=== PATIENT | female | born 1945 | race Caucasian/White ===

== ENCOUNTER → 2023-11-03 09:45 | Outpatient (REF) | payer MEDICARE, OTHER, SELFPAY | LOC: RAD 09:45 | PROVIDERS: ATTENDING PHYSICIAN Nurse Practitioner Family | DX: M79.641 Pain in right hand (principal) | CPT/HCPCS: 73130 ==

== ENCOUNTER → 2023-11-18 13:10 | Outpatient (REF) | payer MEDICARE, OTHER, SELFPAY | LOC: WDC 13:10 | PROVIDERS: ATTENDING PHYSICIAN Nurse Practitioner Family | DX: Z12.31 Encounter for screening mammogram for malignant neoplasm of breast (principal) | CPT/HCPCS: 77063; 77067 ==

== ENCOUNTER → 2024-03-01 14:46 | Outpatient (REF) | payer MEDICARE, OTHER, SELFPAY | LOC: RCS 14:46 | PROVIDERS: ATTENDING PHYSICIAN Nuclear Medicine Nuclear Cardiology; FAMILY PHYSICIAN Nurse Practitioner Family | DX: R06.09 Other forms of dyspnea (principal) | CPT/HCPCS: 93306 ==

== ENCOUNTER 2024-03-01 15:43 | Emergency (ER) | payer MEDICARE, OTHER, SELFPAY ==
[2024-03-01 15:45] VITALS: BP 137/70
--- NOTE | 2024-03-01 16:24 | ED.GENMED ---
History of Present Illness
<CLAUDE Cote Last Filed: 03/01/24 21:38>
General
Chief Complaint: Musculo-Skeletal Complaint
Source: patient
Exam Limitations: none
Time Seen by Provider: 03/01/24 16:22
Nursing documentation reviewed up to this point in time: agreed with
History of Present Illness
History of Present Illness:
This is a 78 y/o female with a pmh of copd, hypothyroidism, parotid gland cancer presenting to the emergency department today with right foot pain. Patient states that she was bending down to scoop cat litter when she rolled on her foot and fell
straight down. This happened yesterday at 8 AM. Patient was able to get up okay on her own. She did not hit her head, denies any neck pain, dizziness, headache, denies any other injuries. Patient does not take any blood thinners. Patient is able
to walk okay but with significant pain. She said that today, her foot started to become swollen. Patient states that she has chronic neuropathy in her feet and patient states that she often has difficulty walking at baseline. Patient lives at
home with her .
Past History
<Amada Nava PA-C - Last Filed: 03/01/24 21:38>
Past History
ED Past Medical History: Hypothyroidism, Other (neuropathy) and Other (parotid cancer)
ED Past Surgical History: Cholecystectomy, Gynecological and Orthopedic
Social History
Tobacco: Non-smoker
Drug: None
Personal:
Living: with family
Employment: Employed
Family History
Family History: Other
Review of Systems
<CLAUDE Cote Last Filed: 03/01/24 21:38>
Review of Systems
All Other Systems: ROS reviewed and negative except as documented in HPI and ROS
Phy Exam
<CLAUDE Cote Last Filed: 03/01/24 21:38>
Physical Exam
Physical Exam:
General: Patient is well appearing and in no acute distress; non-toxic
Skin: Warm and dry, no rashes or lesions
Head: Normocephalic, atraumatic
Eyes: Sclera non-icteric. EOMs intact. PERRLA.
Cardiac: Regular rate and rhythm, no murmurs.
Peripheral Vascular: No lower extremity swelling or edema.
Pulm: Normal respiratory effort
Musculoskeletal: Significant swelling over the dorsum of the foot with no erythema. No pain with range of motion of the ankle. No bony tenderness of proximal tibia and fibula.
Neuro: CN II-XII intact, no focal neurologic deficits.
Psychiatric: Appropriate mood and affect.
Course
<Amada Nava PA-C - Last Filed: 03/01/24 21:38>
Orders/Labs/Results
Orders:
Orders
03/01/24 15:48
CR Foot - Right Min 3 Views Urgent
Comment:
Reason For Exam: fall 02/29/24, pain
03/01/24 17:31
Oxycodone/Acetaminophen [Percocet 5/325] 1 tablet PO NOW STA
Vital Signs
Initial and Last Documented VS:
Initial Vital Signs
Temp Pulse Resp BP Pulse Ox
98.8 F 62 16 137/70 98
03/01/24 15:45 03/01/24 15:45 03/01/24 15:45 03/01/24 15:45 03/01/24 15:45
Last Documented Vital Signs
Temp Pulse Resp BP Pulse Ox
98.8 F 62 16 137/70 98
03/01/24 15:45 03/01/24 15:45 03/01/24 15:45 03/01/24 15:45 03/01/24 15:45
<Nehemias Almonte DO - Last Filed: 03/01/24 17:28>
Orders/Labs/Results
Orders:
Orders
03/01/24 15:48
CR Foot - Right Min 3 Views Urgent
Comment:
Reason For Exam: fall 02/29/24, pain
03/01/24 17:31
Oxycodone/Acetaminophen [Percocet 5/325] 1 tablet PO NOW STA
Vital Signs
Initial and Last Documented VS:
Initial Vital Signs
Temp Pulse Resp BP Pulse Ox
98.8 F 62 16 137/70 98
03/01/24 15:45 03/01/24 15:45 03/01/24 15:45 03/01/24 15:45 03/01/24 15:45
Last Documented Vital Signs
Temp Pulse Resp BP Pulse Ox
98.8 F 62 16 137/70 98
03/01/24 15:45 03/01/24 15:45 03/01/24 15:45 03/01/24 15:45 03/01/24 15:45
Procedures
<Amada Nava PA-C - Last Filed: 03/01/24 21:38>
Splinting/Sling Placement
Right leg:
Procedure completed by: Amada Nava PA-C
Pre-splint extermity exam: neurovascular intact
Type of splint: posterior short leg
Splint material: fiberglass
Splint checked by provider?: Yes
Normal distal neurovascular exam?: Yes
<Amada Nava PA-C - Last Filed: 03/01/24 21:38>
MDM/Problems Addressed
Differential Diagnosis Includes:
ddx include metatarsal fracture, phalangeal fracture, ankle sprain/strain
MDM/Problems Addressed:
Metatarsal fracture:
This is a 78 y/o female with a pmh of copd, hypothyroidism, parotid gland cancer presenting to the emergency department today with right foot pain. Patient states that she was bending down to scoop cat litter when she rolled on her foot and fell
straight down. She was found to have a proximal metatarsal fracture consistent with a Velez Fracture. Patient endured no other injuries. Patient was placed in a posterior short leg splint. Patient has significant neuropathy at baseline in which she
struggles to ambulate and would be unable to use crutches, script written for wheel chair. Patient has support at home with her . Patient will call Dr. Judd's office tomorrow.
Chronic conditions affecting care:
neuropathy, COPD, hypothyroidism, parotid gland cancer
Acute Exacerbation and/or Progression of Chronic Illness:
neuropathy
<Amada Nava PA-C - Last Filed: 03/01/24 21:38>
*Pulse Oximetry
Patient hypoxic: no
*Critical Care Note
Total Time (30-74mins, 75-104mins- exclusive of procedures): Not Applicable
Data Reviewed
Review of Other/Old Records Reveals: Records (reviewed er physician documentation from 05/22/22)
Prescriptions/Medications Considered But Not Given:
n/a
Further Testing Considered But Not Given:
n/a
<Amada Nava PA-C - Last Filed: 03/01/24 21:38>
Patient Management
Escalation/DeEscalation of care consider admission/obs:
Admission not indicated. Case reviewed with my attending Dr. Almonte.
ED Attending Note
<Amada Nava PA-C - Last Filed: 03/01/24 21:38>
-
Portions of this chart may have been created with voice recognition software.� Occasional wrong word or��sound alike� substitutions may have occurred due to the inherent limitations of voice recognition software.
<Nehemias Almonte DO - Last Filed: 03/01/24 17:28>
ED Attending Note
Patient seen and examined by attending physician: Yes
I performed the substantive portion of visit, reviewed & personally made and approve the management plan that is documented in note by myself or BRIA.: Yes
Discharge Plan
Departure
Patient Disposition: Home (Routine Discharge)
Date of Disposition: 03/01/24
Time of Disposition: 17:38
Patient with high blood pressure during this ER visit?: Yes
Discharge Problem:
Velez fracture
Instructions: Foot Avulsion Fracture (DC), Splint Care, BLOOD PRESSURE
Prescriptions:
New
oxycodone-acetaminophen [Percocet] 5-325 mg tablet
1 tab PO Q6HPRN PRN (Reason: pain) Qty: 6 0RF
No Action
L.acidoph, paracasei,B. lactis 1 EACH capsule
1 ea PO DAILY
levothyroxine 100 MCG tablet
100 mcg PO DAILY AT 0700
gabapentin 300 MG capsule
600 mg PO QPM
mupirocin 1 APPLIC ointment
1 applic intranasal BID Qty: 1 0RF
sennosides [senna] 1 TABLET tablet
1 tab PO PRN PRN (Reason: constipation)
sennosides [senna] 1 TABLET tablet
2 tab PO BID 0RF
hydromorphone 2 MG tablet
2 mg PO Q4HPRN PRN (Reason: moderate pain) Qty: 15 0RF
Rx Instructions:
dx CHELSI
ongoing therapy
magnesium hydroxide 30 ML suspension
30 ml PO DAILYPRN PRN (Reason: constipation) 0RF
diazepam 2 MG tablet
1 mg PO BID@2200,0700 Qty: 14 0RF
docusate sodium 100 MG capsule
100 mg PO BID 0RF
hydromorphone 4 MG tablet
4 mg PO Q4HPRN PRN (Reason: severe pain) Qty: 15 0RF
Rx Instructions:
DX CHELSI
ongoing therapy
enoxaparin 40 MG/0.4 ML syringe
40 mg SC QPM 0RF
Rx Instructions:
LAST DOSE 05/15-THEN ELIQUIS
pantoprazole 40 MG tablet,delayed release (DR/EC)
40 mg PO HS Qty: 1 0RF
prednisone 10 MG tablet
40 mg PO TAPER Qty: 20 0RF
apixaban [Eliquis] 2.5 MG tablet
2.5 mg PO BID Qty: 60 0RF
Rx Instructions:
BEGIN 9/4 AM
ondansetron 4 MG tablet,disintegrating
4 mg PO TIDPRN PRN (Reason: nausea) Qty: 15 0RF
dicyclomine 10 MG capsule
10 mg PO QIDPRN PRN (Reason: abdominal pain) Qty: 10 0RF
Referrals:
Antonette Jennings CRNP [Family Provider] -
Diego Judd MD [Active] - Call in 1-3 days for appt
Activity Restrictions/Additional Instructions:
Tomorrow morning, please call the attached number to see the orthopedist to schedule appointment for follow-up.
Please remain nonweightbearing. Please use a wheelchair.
We have sent Percocet to your pharmacy. This medication contains Tylenol. The next time you can take it is 10:30 pm. Tomorrow, you can take one tablet every 6 hours as needed.
Please return emergency department should you experience excessive pallor in your extremity, increasing pain, decrease sensation, or other concerning signs or symptoms.
Interventions
Interventions:
*Risk Screen - Suicide Last Done: 03/01/24 16:31
*General Assessment Last Done: 03/01/24 15:45
*Neglect/Abuse Screening Last Done: 03/01/24 16:31
ED- Fall Risk Assessment Last Done: 03/01/24 18:01
*ED COVID-19 Vaccine History Last Done: 03/01/24 15:45
*Nursing Disposition Last Done: 03/01/24 18:01
ED-Musculoskeletal Assessment Last Done: 03/01/24 16:31
Discharge Date and Time
Discharge Date/Time: 03/01/24 18:03
Print Language: CHINESE
[2024-03-01] MEDS: PERCOCET 5/325 1 TABLET PO (17:44)
[2024-03-01 17:49] VITALS: BMI 25.0
== END 2024-03-01 18:03 | disposition home or self-care (01) ==
LOC: EMR 15:43
PROVIDERS: EMERGENCY PHYSICIAN Emergency Medicine; FAMILY PHYSICIAN Nurse Practitioner Family
DX: S92.354A Nondisplaced fracture of fifth metatarsal bone, right foot, initial encounter for closed fracture (principal); W18.39XA Other fall on same level, initial encounter; Y93.89 Activity, other specified; R03.0 Elevated blood-pressure reading, without diagnosis of hypertension; J44.9 Chronic obstructive pulmonary disease, unspecified; E03.9 Hypothyroidism, unspecified; C07 Malignant neoplasm of parotid gland; G62.9 Polyneuropathy, unspecified; R26.2 Difficulty in walking, not elsewhere classified; Z90.49 Acquired absence of other specified parts of digestive tract
CPT/HCPCS: 99283; 29515; 73630

== ENCOUNTER → 2024-04-05 07:28 | Outpatient (REF) | payer MEDICARE, OTHER, SELFPAY ==
[2024-04-05] MEDS: FLUSH (NSS) 1 FLUSH IV (09:15)
[2024-04-05] MEDS: LEXISCAN 0.4 MG IV (09:15)
== END ==
LOC: RCS 07:28
PROVIDERS: ATTENDING PHYSICIAN Nuclear Medicine Nuclear Cardiology; FAMILY PHYSICIAN Nurse Practitioner Family
DX: R06.09 Other forms of dyspnea (principal)
CPT/HCPCS: 93017; J2785

== ENCOUNTER → 2024-04-12 08:14 | Outpatient (REF) | payer MEDICARE, OTHER, SELFPAY | LOC: RAD 08:14 | PROVIDERS: ATTENDING PHYSICIAN Physician Assistant; FAMILY PHYSICIAN Nurse Practitioner Family | DX: T07.XXXA Unspecified multiple injuries, initial encounter (principal); K59.09 Other constipation; Z78.0 Asymptomatic menopausal state | CPT/HCPCS: 74022; 77080 ==

== ENCOUNTER 2024-08-25 08:58 | Emergency (ER) | payer MEDICARE, OTHER, SELFPAY ==
[2024-08-25 09:06] VITALS: BP 159/74; BMI 22.9
--- NOTE | 2024-08-25 09:20 | ED.GENMED ---
History of Present Illness
General
Chief Complaint: Weakness
Time Seen by Provider: 08/25/24 09:03
History of Present Illness
History of Present Illness:
Patient is a 79-year-old woman with history of hypothyroidism, neuropathy, prior PE not currently on anticoagulation presenting to the emergency department with a headache. Patient states for the past week she has had a headache to the front of her
head. She describes as a tight band. It gradually worsened throughout the week. She states that this morning she woke up around 7 AM with a worsening headache. It was not a thunderclap headache. She does state that she has not been having any
nausea photophobia or phonophobia. She states that she tried to get up out of bed this morning but was having significant weakness secondary to the headache so her called 911. No fevers or chills. No chest pain. No nausea or vomiting.
No abdominal pain. No numbness tingling. No urinary symptoms. No back pain. No falls.
Past History
Past History
ED Past Medical History: Hypothyroidism, Other (neuropathy) and Other (parotid cancer)
ED Past Surgical History: Cholecystectomy, Gynecological and Orthopedic
Social History
Tobacco: Non-smoker
Drug: None
Personal:
Living: with family
Employment: Employed
Family History
Family History: Other
Phy Exam
Physical Exam
Physical Exam:
GENERAL: in no acute distress
HEENT: normocephalic, extraocular movements intact, moist oral mucosa
NECK: normal inspection
RESPIRATORY: no respiratory distress, clear to auscultation bilaterally
CARDIOVASCULAR: regular rate and rhythm
ABDOMEN/: soft, non-distended, non-tender to palpation, no rebound or guarding
EXTREMITIES: non-tender, no edema/swelling
NEUROLOGIC: NEUROLOGIC: alert and oriented x 3, cranial nerves II-XII intact, right upper extremity strength 3/5, left upper extremity strength 3/5, right lower extremity strength 3/5, left lower extremity strength 3/5, normal sensation to light
touch, normal [id number] and [id number], gait not tested formally
SKIN: warm
Course
Orders/Labs/Results
Orders:
Orders
08/25/24 Breakfast
NPO
Reason for opting out of [employer] order writing: Provider Decision
Allow oral meds: No
Allow clear liquids: No
08/25/24 09:03
EKG [Electrocardiogram (*1)] Urgent
Reason for Study: Chest Pain
EKG- Treatment ONCE
08/25/24 09:19
Metoclopramide [Reglan] 10 mg IV NOW STA
08/25/24 09:20
CT Head W/o Iv Contrast Urgent
Comment:
Reason For Exam: headache
08/25/24 09:21
Complete Blood Count/With Diff Urgent
Comprehensive Metabolic Panel Urgent
TSH Reflex To Free T4 Urgent
08/25/24 09:42
0.9% Sodium Chloride 1000 ml [Nss] 1,000 ml IV BOLUS
08/25/24 10:57
Ketorolac [Toradol] 15 mg IV NOW STA
08/25/24 10:58
Urinalysis Reflex To Culture Urgent
Date Specimen was Collected: 08/25/24
Time Specimen was Collected: 09:03
Urine Microscopic Reflex Cult Urgent
Urine Culture Urgent
MILLER Source: U
Specimen Description:
Date Specimen was Collected: 08/25/24
Time Specimen was Collected: 09:03
08/25/24 12:43
Cephalexin Monohydrate [Keflex] 500 mg PO NOW STA
Abnormal Lab Results
08/25/24 08/25/24
09:21 10:58
Creatinine 0.5 L mg/dL
(0.6-1.0)
Leukocyte Esterase Rfl 1+ A
(Negative)
Urine WBC (Reflex) 30-40 A /HPF
(0-5)
Urine Bacteria (Reflex) Moderate A
(Negative)
08/25/24 09:21
08/25/24 09:21
Vital Signs
Initial and Last Documented VS:
Initial Vital Signs
Pulse Ox
97
08/25/24 09:03
Last Documented Vital Signs
Temp Pulse Resp BP Pulse Ox
98.3 F 67 17 137/62 95
08/25/24 09:06 08/25/24 11:00 08/25/24 11:00 08/25/24 10:00 08/25/24 10:00
MDM/Problems Addressed
Differential Diagnosis Includes:
Patient is a 79-year-old woman with history of hypothyroidism, neuropathy presenting to the emergency department with headache and generalized weakness. Vitals here notable for being afebrile. Exam does show generalized weakness with strength only
able to go against gravity. No sensory deficits. Given that the headache has been ongoing for 1 week and slowly worsening differential consists of migraine versus tension. No evidence of meningismus on exam to suggest meningitis. Considered
subarachnoid however it was not thunderclap in nature. Given that it did suddenly worsen at 7 AM patient is currently in the window for CT scan. Patient does have a remote history of cancer so could be malignancy or metastases. Could be metabolic
derangement or infection such as UTI. Given that the is asymptomatic less likely to be carbon monoxide poisoning. Will check blood work EKG. Will obtain CT scan. Will give Reglan. Will wait to administer Toradol until after CT scan.
*Critical Care Note
Total Time (30-74mins, 75-104mins- exclusive of procedures): Not Applicable
Update Note
Update Note:
is at bedside who states that this week she was acting completely normal. She did not complain of a headache to him. This morning she got up around 7 AM in her usual state of health. She fed the pets and was going about her morning when
she called her stating that she felt weak and unstable. Patient's states that there was no slurring of her speech and she did not have any word finding difficulty. No weakness limited to one limb. He states that it was
generalized during this entire event.
CT scan of the head per my interpretation with no acute abnormality. Toradol given. Blood work is unremarkable. Urine does have some leukocyte esterase as well as bacteria. On reevaluation patient states that she feels much better. She was able
to ambulate and does not feel weak. She states that her headache is resolved. She does note that she has noticed a smell to her urine. Given the weakness and this urine we will treat with antibiotics. I did offer patient admission for further
evaluation given the sudden onset weakness and headache however patient would prefer to go home. She will call her primary care doctor on Tuesday for further evaluation. I do think this is appropriate as my suspicion for a TIA is low given that she
had generalized weakness and no focal deficits during this episode. Strict return precautions given to patient and patient's who is at bedside. All questions answered. Will discharge at this time.
ED Attending Note
-
Portions of this chart may have been created with voice recognition software.� Occasional wrong word or��sound alike� substitutions may have occurred due to the inherent limitations of voice recognition software.
Discharge Plan
Departure
Patient Disposition: Home (Routine Discharge)
Date of Disposition: 08/25/24
Time of Disposition: 12:44
Patient with high blood pressure during this ER visit?: No
Discharge Problem:
Headache, Acute UTI
Instructions: Generalized Weakness (DC)
Prescriptions:
New
cephalexin 500 mg capsule
500 mg PO Q12H 5 Days Qty: 10 0RF
No Action
L.acidoph,paracasei,B.animalis 1 EACH capsule
1 ea PO DAILY
levothyroxine 100 MCG tablet
100 mcg PO DAILY AT 0700
gabapentin 300 MG capsule
600 mg PO QPM
mupirocin 1 APPLIC ointment
1 applic intranasal BID Qty: 1 0RF
sennosides [senna] 1 TABLET tablet
1 tab PO PRN PRN (Reason: constipation)
sennosides [senna] 1 TABLET tablet
2 tab PO BID 0RF
hydromorphone 2 MG tablet
2 mg PO Q4HPRN PRN (Reason: moderate pain) Qty: 15 0RF
Rx Instructions:
dx CHELSI
ongoing therapy
magnesium hydroxide 30 ML suspension
30 ml PO DAILYPRN PRN (Reason: constipation) 0RF
diazepam 2 MG tablet
1 mg PO BID@2200,0700 Qty: 14 0RF
docusate sodium 100 MG capsule
100 mg PO BID 0RF
hydromorphone 4 MG tablet
4 mg PO Q4HPRN PRN (Reason: severe pain) Qty: 15 0RF
Rx Instructions:
DX CHELSI
ongoing therapy
enoxaparin 40 MG/0.4 ML syringe
40 mg SC QPM 0RF
Rx Instructions:
LAST DOSE /-THEN ELIQUIS
pantoprazole 40 MG tablet,delayed release (DR/EC)
40 mg PO HS Qty: 1 0RF
prednisone 10 MG tablet
40 mg PO TAPER Qty: 20 0RF
apixaban [Eliquis] 2.5 MG tablet
2.5 mg PO BID Qty: 60 0RF
Rx Instructions:
BEGIN 9/4 AM
ondansetron 4 MG tablet,disintegrating
4 mg PO TIDPRN PRN (Reason: nausea) Qty: 15 0RF
dicyclomine 10 MG capsule
10 mg PO QIDPRN PRN (Reason: abdominal pain) Qty: 10 0RF
oxycodone-acetaminophen [Percocet] 5-325 mg tablet
1 tab PO Q6HPRN PRN (Reason: pain) Qty: 6 0RF
Referrals:
Antonette Jennings CRNP [Family Provider] -
Interventions
Interventions:
*Risk Screen - Suicide Last Done: 08/25/24 09:03
*General Assessment Last Done: 08/25/24 09:03
*Neglect/Abuse Screening Last Done: 08/25/24 09:03
ED- Fall Risk Assessment Last Done: 08/25/24 09:03
*ED COVID-19 Vaccine History Last Done: 08/25/24 09:03
ED- Cardiac Assessment Last Done: 08/25/24 09:03
ED- Neurological Assessment Last Done: 08/25/24 09:03
ED- Pulmonary Assessment Last Done: 08/25/24 09:03
Discharge Date and Time
Print Language: URDU
[2024-08-25 09:47] LABS: % Basophils 0.8 % (0-2); % Eosinophils 1.7 % (0-6); % Immature Granulocytes 0.2 % (0-0.5); % Lymphocytes 33.3 % (20.5-51.1); % Monocytes 8.8 % (1.7-9.3); % Neutrophils 55.2 % (42.2-75.2); Absolute Eosinophils 0.1 10^3/uL (0-0.7); Absolute Lymphocytes 1.6 10^3/uL (1.2-3.4); Absolute Monocytes 0.4 10^3/uL (0.1-0.6); Absolute Neutrophils 2.6 10^3/uL (1.4-6.5); Hematocrit 43.3 % (37.0-47.0); Hemoglobin 14.5 g/dL (12.0-16.0); Mean Corp Hgb Conc. 33.5 g/dL (33.0-37.0); Mean Corpuscular Hgb 29.2 pg (27.0-31.0); Mean Corpuscular Volume 87.1 fL (81.0-99.0); Mean Platelet Volume 9.3 fL (7.4-10.4); Nucleated Red Blood Cells % 0 %; Platelet Count 228 10^3/uL (130-400); Red Blood Cell Count 4.97 10^6/uL (4.20-5.40); White Blood Cell Count 4.8 10^3/uL (4.8-10.8)
[2024-08-25] MEDS: REGLAN 10 MG IV (09:49)
[2024-08-25] MEDS: NSS 1000 IV (09:52)
[2024-08-25 10:00] VITALS: BP 137/62
[2024-08-25 10:01] LABS: ALT (SGPT) 20 U/L (0-35); AST (SGOT) 25 U/L (14-36); Albumin 4.1 g/dl (3.5-5.0); Alkaline Phosphatase 59 U/L (38-126); Blood Urea Nitrogen 12 mg/dl (7-17); Carbon Dioxide 28 mmol/L (22-30); Chloride 107 mmol/L (98-107); Estimated Creatinine Clearance 72 ml/min; Glucose 94 mg/dl (70-99); Sodium 142 mmol/L (135-145); Total Bilirubin 1.1 mg/dl (0.2-1.3); Total Protein 6.4 g/dl (6.3-8.2); eGFR > 60.00
[2024-08-25 10:31] LABS: TSH Reflex To Free T4 0.76 uIU/ml (0.47-4.68)
[2024-08-25] MEDS: TORADOL 15 MG IV (11:11)
[2024-08-25 11:14] LABS: Urine Albumin Negative (Neg - Trace); Urine Bilirubin Negative (Negative); Urine Character Clear (Clear); Urine Color Yellow; Urine Glucose Negative (Negative); Urine Ketone Negative (Negative); Urine Leukocyte 1+ (Negative); Urine Nitrite Negative (Negative); Urine Occult Blood Negative (Negative); Urine Specific Gravity 1.015 (<1.030); Urine Urobilinogen Negative (Neg - 1+)
[2024-08-25 11:17] VITALS: BP 153/84
[2024-08-25 11:26] LABS: Urine Squamous Cell >30 /LPF (Few)
[2024-08-25 11:27] LABS: Urine Bacteria Moderate (Negative); Urine Red Blood Cell None Seen /HPF (0-2); Urine White Cell 30-40 /HPF (0-5)
[2024-08-25] MEDS: KEFLEX 500 MG PO (12:58)
== END 2024-08-25 12:50 | disposition home or self-care (01) ==
LOC: EMR 08:58
PROVIDERS: Emergency Medicine; EMERGENCY PHYSICIAN Student in an Organized Health Care Education/Training Program; FAMILY PHYSICIAN Nurse Practitioner Family
DX: N39.0 Urinary tract infection, site not specified (principal); R51.9 Headache, unspecified; E03.9 Hypothyroidism, unspecified; Z86.711 Personal history of pulmonary embolism; Z90.49 Acquired absence of other specified parts of digestive tract
CPT/HCPCS: 99284; 96374; 96375; 96361; 70450; 80053; 81003; 81015; 84443; 85025; 87086; 93005

== ENCOUNTER → 2024-09-06 07:30 | Outpatient (REF) | payer MEDICARE, OTHER, SELFPAY | LOC: MRI 07:30 | PROVIDERS: ATTENDING PHYSICIAN Nurse Practitioner Family | DX: Z85.9 Personal history of malignant neoplasm, unspecified (principal); R51.9 Headache, unspecified | CPT/HCPCS: 70553; A9575 ==

== ENCOUNTER → 2024-09-16 09:51 | Outpatient (REF) | payer MEDICARE, OTHER, SELFPAY | LOC: MRI 3T 09:51 | PROVIDERS: ATTENDING PHYSICIAN Physician Assistant; FAMILY PHYSICIAN Nurse Practitioner Family | DX: M79.604 Pain in right leg (principal) | CPT/HCPCS: 73718 ==

== ENCOUNTER → 2024-10-04 09:47 | Outpatient (REF) | payer MEDICARE, OTHER, SELFPAY | LOC: RST 09:47 | PROVIDERS: ATTENDING PHYSICIAN Family Medicine | DX: R13.19 Other dysphagia (principal) | CPT/HCPCS: 74230; 92611 ==

== ENCOUNTER → 2025-02-15 10:10 | Outpatient (REF) | payer MEDICARE, OTHER, SELFPAY | LOC: RCS 10:10 | PROVIDERS: ATTENDING PHYSICIAN Nuclear Medicine Nuclear Cardiology; FAMILY PHYSICIAN Family Medicine | DX: I63.9 Cerebral infarction, unspecified (principal); R60.0 Localized edema; G60.9 Hereditary and idiopathic neuropathy, unspecified; R06.09 Other forms of dyspnea | CPT/HCPCS: 93306 ==